=== PATIENT | male | born 1995 | race Two or more races ===

== ENCOUNTER 2025-02-05 16:33 | Emergency (ER) | payer OTHER, SELFPAY ==
[2025-02-05 16:40] VITALS: BP 111/75; PULSE 76; RESP 16; TEMP 36.7; O2SAT 100; BMI 24.7
--- NOTE | 2025-02-05 16:51 | XR_ITS ---
Examination: Venous duplex lower extremity sonogram, bilateral. Date and time of exam: February 05, 2025 1658 hrs. Indications: Bilateral lower leg swelling this week Technique: Multiple sonographic images of the deep venous system have been obtained. B-mode/2-D grayscale imaging of vascular structures and Doppler spectral analysis (waveforms) and color performed Both legs are examined. Findings: Deep venous systems do not demonstrate abnormal echogenicity. All visualized deep veins exhibit compressibility. All visualized deep veins exhibit augmentation. Impression: Negative for deep vein thrombosis
--- NOTE | 2025-02-05 16:54 | PD.EDEXREM ---
ED Extremity Problem RME/HPI General Chief complaint: Extremity Problem,Nontraumatic Stated complaint: MEDICAL CLEARANCE Time Seen by Provider: 02/05/25 16:41 Arrival date/time: 02/05/25 16:33 RME / HPI RME / HPI Narrative: 29 year old male with no stated medical history presents to the ED [facility]IB [facility] from skilled nursing for evaluation of bilateral lower extremity redness, swelling, and increased warmth beginning ~ 1-2 weeks ago. Patient denies any history of similar symptoms, injury, or trauma. Denies fevers, chills, chest pain, cough, shortness of breath. Per officers, patient has been incarcerated since 01/12/2025 and has not sought medical attention since onset of symptoms. No other complaints reported. Related Data Previous Rx's ?Medication ?Instructions ?Recorded ibuprofen 600 mg tablet 600 mg PO Q6H PRN pain #30 tabs 02/05/25 sulfamethoxazole 800 1 tab PO BID #20 tabs 02/05/25 mg-trimethoprim 160 mg tablet (Bactrim DS) Allergies Allergy/AdvReac Type Severity Reaction Status Date / Time No Known Drug Allergies Allergy Verified 02/05/25 17:48 Review of Systems Review of Systems Systems Reviewed: All systems reviewed, normal except as documented ED Exam Narrative Physical exam: GENERAL APPEARANCE: alert and oriented x 4, well-developed, well-nourished, no acute distress HEENT: Normocephalic, atraumatic; pupils equal, round, reactive to light; EOMI; mucous membranes pink, moist; oropharynx clear NECK: Supple LUNGS: CTABL; no wheezes, no rales, no rhonchi HEART: Regular rate, regular rhythm; normal S1, S2; no murmurs ABDOMEN: non distended; normal BS; soft, no tenderness, no guarding, no rebound; no masses, no organomegaly, no hernia BACK: no CVA tenderness EXTREMITIES: Bilateral lower extremity erythema, edema, and increased warmth; no edema NEUROLOGIC: awake; alert and oriented x4; cranial nerves II-XII grossly intact; no focal sensory or motor deficits SKIN: warm, dry, normal color; no rashes Course Quality Measures none Orders Category Date Time Status US venous doppler LE BI Stat Exams 02/05/25 16:51 Completed CBC Stat Lab 02/05/25 16:49 Completed CMP [Comprehensive Metabolic Panel] Stat Lab 02/05/25 16:49 Completed Lactic Acid [Lactate (Lactic Acid)] Stat Lab 02/05/25 16:49 Completed Procalcitonin Stat Lab 02/05/25 16:49 Completed Trimethoprim/Sulfa 160/800 Ds [Bactrim Ds] Med 02/05/25 17:48 Discontinued 1 tab PO X1 ONE Vital Signs Vital signs: Vital Signs Temperature 98.0 F 02/05/25 16:40 Pulse Rate 76 02/05/25 16:40 Respiratory Rate 16 02/05/25 16:40 Blood Pressure 111/75 02/05/25 16:40 Pulse Oximetry (%) 100 02/05/25 16:40 Oxygen Delivery Method Room Air 02/05/25 16:40 Extremity Problem MDM Narrative MDM Narrative:: Abiola Todd am scribing for and in the presence of Dr. Chavez. Patient remains clinically stable throughout the emergency department visit. We reviewed all the results, analysis, and treatment plans. Patient is amenable to discharge. Strict return precautions were outlined. Patient data External records reviewed:: None (No previous ED visits for review ) Clinical information provided by:: patient and law enforcement Social determinants that could affect healthcare access:: housing (currently incarcerated ) Patient has the following chronic illnesses:: None reported How is presenting disease/condition affected by chronic disease/condition?: no chronic disease Evaluation data The following diagnostics were reviewed and interpreted by me:: lab results and radiology exam(s) Lab and/or radiology exams considered but not ordered:: None Interpretation Summary: Ordering Physician: Keke Chavez MD Date of Service: 02/05/25 Procedure(s): US venous doppler LE Accession Number(s): [id number] cc: Kapil Ortiz MD; Keke Chavez MD~ Examination: Venous duplex lower extremity sonogram, bilateral. Date and time of exam: February 05, 2025 1658 hrs. Indications: Bilateral lower leg swelling this week Technique: Multiple sonographic images of the deep venous system have been obtained. B-mode/2-D grayscale imaging of vascular structures and Doppler spectral analysis (waveforms) and color performed Both legs are examined. Findings: Deep venous systems do not demonstrate abnormal echogenicity. All visualized deep veins exhibit compressibility. All visualized deep veins exhibit augmentation. Impression: Negative for deep vein thrombosis Dictated By: Kapil Ortiz MD Signed By: <Electronically signed by Kapil Ortiz MD in OV> 02/05/25 1722 Medications / Prescriptions Medications or Prescriptions considered but not ordered:: None Medication administrations:: Medication Administration History Discontinued Medications Trimethoprim/Sulfamethoxazole (Trimethoprim/Sulfa 160/800 Ds Tablet) 1 tab PO X1 ONE Stop: 02/05/25 17:49 Last Admin: 02/05/25 18:04 Dose: 1 tab Documented By: ED See above Consultations Consultation(s) initiated? (list below): No Diagnosis Extremity Problem Differential Diagnosis: gout, cellulitis, lower extremity edema and deep vein thrombosis of lower extremity Most likely diagnosis given after review of the tests above:: BLE cellulitis Admission Indicated Admission indicated?: not indicated Admission Request Was there a request for admission?: No Disposition Plan Disposition Plan: Discharge Discharge Attestation Discharge Attestation: The patient and all family members were given an opportunity to ask questions and understood the discharge instructions. Discharge instructions specifically effects, indications for sooner follow up or return to the emergency department, and the expected course of current diagnosis. Patient condition: Stable Discharge Plan Plan Patient Disposition: [facility]/Court/Law Prescriptions/Referrals Prescriptions/Med Rec: New sulfamethoxazole-trimethoprim [Bactrim DS] 800-160 mg tablet 1 tab PO BID Qty: 20 0RF ibuprofen 600 mg tablet 600 mg PO Q6H PRN (Reason: pain) Qty: 30 0RF Problem List Clinical Impression: Cellulitis, Lower extremity edema Patient/Caregiver Discharge Instructions Education Materials: ED Cellulitis Print Language: [place]
[2025-02-05 17:03] LABS: Lactate (Lactic Acid) 0.9 mMol/L (0.4-2.0)
[2025-02-05 17:12] LABS: Basophils # (Auto) 0.1 Thou/mm3 (0.0-0.2); Basophils % (Auto) 1 % (0-2.5); Eosinophils # (Auto) 0.1 Thou/mm3 (0.0-0.5); Eosinophils % (Auto) 1 % (0-10); Hematocrit 35.6 % (41.0-53.0); Hemoglobin 12.7 g/dL (13.5-16.0); Immature Granulocytes Auto 0.02 Thou/mm3 (0.00-0.00); Lymphocytes # (Auto) 1.8 Thou/mm3 (1.0-4.8); Lymphocytes % (Auto) 17 % (10-50); Mean Corpuscular HGB Conc 35.7 g/dl (31.0-37.0); Mean Corpuscular Hemoglobin 31.7 pg (25.0-35.0); Mean Corpuscular Volume 89 fL (80-100); Monocytes # (Auto) 0.8 Thou/mm3 (0.0-0.8); Monocytes % (Auto) 8 % (0-12); Neutrophils # (Auto) 7.7 Thou/mm3 (1.8-7.7); Neutrophils % (Auto) 74 % (37-80); Nucleated Red Blood Cell # 0.00 Thou/mm3 (0.00-0.00); Nucleated Red Blood Cell % 0 /100 WBC (0); Platelet Count 404 Thou/mm3 (140-440); RDW Standard Deviation 42.1 fL (35.1-43.9); Red Blood Count 4.01 Miln/mm3 (4.50-5.90); White Blood Count 10.4 Thou/mm3 (3.8-10.6)
[2025-02-05 17:34] LABS: Alanine Aminotransferase 15 U/L (10-49); Albumin, Serum 4.1 gm/dL (3.5-5.0); Albumin/Globulin Ratio 1.7 (1.2-2.2); Alkaline Phosphatase 62 U/L (46-116); Anion Gap 11 (7-16); Aspartate Amino Transferase 31 U/L (0-34); BUN/Creatinine Ratio 12 Ratio (12-20); Bilirubin,Total 0.5 mg/dL (0.3-1.2); Blood Urea Nitrogen 11 mg/dL (9-23); Calcium 9.5 mg/dL (8.3-10.6); Calcium (Corrected) 9.5 mg/dL (8.5-10.1); Carbon Dioxide 27.3 mMol/L (20.0-31.0); Chloride 102 mMol/L (98-107); Creatinine (Component) 0.9 mg/dL (0.6-1.3); Globulin 2.4 gm/dL (2.3-3.5); Glucose 94 mg/dL (74-106); Osmolality,Calculated 278 (275-295); Potassium 3.4 mMol/L (3.4-5.1); Procalcitonin < 0.04 ng/ml (0.0-0.49); Sodium 140 mMol/L (136-145); Total Protein 6.5 gm/dL (5.7-8.2); eGFR > 60 See Note
[2025-02-05] MEDS: TRIMETHOPRIM/SULFA 160/800 DS TABLET 1 TAB PO (18:04)
[2025-02-05 18:08] VITALS: BP 114/81; PULSE 92; RESP 16; TEMP 36.7; O2SAT 100
== END 2025-02-05 18:08 ==
LOC: SERX 18:02
PROVIDERS: Emergency Provider Emergency Medicine
DX: Z02.89 Encounter for other administrative examinations (principal); L03.116 Cellulitis of left lower limb; L03.115 Cellulitis of right lower limb
CPT/HCPCS: 36415; 80053; 83605; 84145; 85025; 93970; 99283; A9270

== ENCOUNTER 2025-02-06 12:58 | Emergency (ER) | payer OTHER, SELFPAY ==
[2025-02-06 13:07] VITALS: BP 173/102; PULSE 115; RESP 18; TEMP 37; O2SAT 99
[2025-02-06 13:08] VITALS: BMI 25.4
--- NOTE | 2025-02-06 13:13 | EKG_ITS ---
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
--- NOTE | 2025-02-06 13:15 | PD.EDADULT ---
ED General RME/HPI General Stated complaint: PENITENTIARY CLEARANCE Time Seen by Provider: 02/06/25 13:09 Arrival date/time: 02/06/25 12:58 RME / HPI RME / HPI narrative: 29-year-old male patient with history of schizophrenia, was sent to us by general for potassium of 2.5. Apparently patient was seen here also yesterday for bilateral lower extremity swelling, ultrasound of bilateral lower extremity was done yesterday and it was negative for DVT today laboratory workup showed potassium 2.5 currently patient is not having any symptoms except for chronic leg pain. Patient is also talking nonsense. He is calm and cooperative. Related Data Previous Rx's ?Medication ?Instructions ?Recorded ibuprofen 600 mg tablet 600 mg PO Q6H PRN pain #30 tabs 02/05/25 sulfamethoxazole 800 1 tab PO BID #20 tabs 02/05/25 mg-trimethoprim 160 mg tablet (Bactrim DS) Allergies Allergy/AdvReac Type Severity Reaction Status Date / Time No Known Drug Allergies Allergy Verified 02/05/25 17:48 Review of Systems Review of Systems Narrative Review of Systems: Review of system reviewed and within normal limits except mentioned in HPI ED Exam Narrative Physical exam: VITAL SIGNS: Reviewed. GENERAL APPEARANCE: Alert and interactive, follows commands, no acute distress, HEAD AND FACE: Non-traumatic. ENT: PERRL, pink conjunctivitis, eyelid no trauma, Mucous membrane moist. NECK: Supple, nontender, no nuchal rigidity. CHEST: No tenderness, no crepitus, no paradoxical movement, no retractions. LUNGS: Clear, well ventilated, symmetric, no rales, no wheezing, no ronchi, no stridor, good breath sounds bilaterally. HEART: Regular rate, regular rhythm, no murmur, no gallops. ABDOMEN: Soft, positive bowel sounds, nondistended, no guarding, nontender, no rebound, no masses, RECTAL: Deferred. GENITAL: Deferred. NEUROLOGICAL: Gross motor function intact sensory function intact, Appropriate for age. MUSCULOSKELETAL: low back nontender, full range of motion. EXTREMITIES: Bilateral lower extremity +1 swelling, nontender, full range of motion. SKIN: Color pink, dry, no rash, no lacerations, no abrasions, no contusions. LYMPHATICS: Deferred. Course Quality Measures none Orders Category Date Time Status EKG (ED ONLY) *Do not use* NOW Care 02/06/25 13:14 Active EKG (ED Only) Stat Exams 02/06/25 13:13 Draft CBC [CBC] Stat Lab 02/06/25 13:19 Completed CK [Creatine Kinase] Stat Lab 02/06/25 13:19 Completed CMP [Comprehensive Metabolic Panel] Stat Lab 02/06/25 13:19 Completed Potassium Chloride [K-Dur] Med 02/06/25 13:50 Discontinued 40 meq PO X1 ONE Vital Signs Vital signs: Vital Signs Temperature 98.6 F 02/06/25 13:07 Pulse Rate 115 H 02/06/25 13:07 Respiratory Rate 18 02/06/25 13:07 Blood Pressure 173/102 H 02/06/25 13:07 Pulse Oximetry (%) 99 02/06/25 13:07 Oxygen Delivery Method Room Air 02/06/25 13:07 Discharge Plan Plan Patient Disposition: HOME (Self Care) Discharge Disposition comment: stable Prescriptions/Referrals Prescriptions/Med Rec: No Action sulfamethoxazole-trimethoprim [Bactrim DS] 800-160 mg tablet 1 tab PO BID Qty: 20 0RF ibuprofen 600 mg tablet 600 mg PO Q6H PRN (Reason: pain) Qty: 30 0RF Referrals: Carlos A([facility])Patricia MD [Primary Care Provider] - In 1 week Problem List Clinical Impression: Acute hypokalemia Patient/Caregiver Discharge Instructions Discharge Activity: activity as tolerated Education Materials: ED Hypokalemia Additional Instructions: Thank you for the opportunity for serving you today. You are stable for discharged . You are advised to: Return to ED for worsening of symptoms Today's potassium was noted to be 3.3. Patient was given 40 mEq of potassium p.o. Continue taking the antibiotic that was prescribed yesterday. Print Language: [place] Stand Alone Forms: [facility] Award Info., Patient Portal Info Letter PA/INFORMATION ARCHITECT Supervising Physician CALDERON/NICOLAS Supervising Physician: MD Osmel MDM Narrative MDM hospital course (for use when minimal MDM required): 29-year-old male patient with history of schizophrenia, was sent to us by general for potassium of 2.5. Apparently patient was seen here also yesterday for bilateral lower extremity swelling, ultrasound of bilateral lower extremity was done yesterday and it was negative for DVT today laboratory workup showed potassium 2.5 currently patient is not having any symptoms except for chronic leg pain. Patient is also talking nonsense. He is calm and cooperative. EKG showed sinus rhythm, ventricular rate of 98 bpm, no ST segment elevation or depression noted. Patient potassium today was noted to be 3.3 patient received 40 mEq potassium. Patient was prescribed antibiotic yesterday was advised to continue taking antibiotic. Stable for [facility] Medication Administration(s) Medication Administration History Discontinued Medications Potassium Chloride (Potassium Chloride 20 Meq Tabcr) 40 meq PO X1 ONE Stop: 02/06/25 13:51 Last Admin: 02/06/25 14:19 Dose: 40 meq Documented By: TM Diagnosis Differential Diagnosis ED Complaint MDM: Hypokalemia, lower leg swelling, lower leg cellulitis, Diagnoses ruled out and/or further discussions: Hypokalemia mild
[2025-02-06 13:35] LABS: Basophils # (Auto) 0.0 Thou/mm3 (0.0-0.2); Basophils % (Auto) 0 % (0-2.5); Eosinophils # (Auto) 0.1 Thou/mm3 (0.0-0.5); Eosinophils % (Auto) 1 % (0-10); Hematocrit 35.6 % (41.0-53.0); Hemoglobin 12.5 g/dL (13.5-16.0); Immature Granulocytes Auto 0.02 Thou/mm3 (0.00-0.00); Lymphocytes # (Auto) 1.7 Thou/mm3 (1.0-4.8); Lymphocytes % (Auto) 17 % (10-50); Mean Corpuscular HGB Conc 35.1 g/dl (31.0-37.0); Mean Corpuscular Hemoglobin 31.1 pg (25.0-35.0); Mean Corpuscular Volume 89 fL (80-100); Monocytes # (Auto) 0.6 Thou/mm3 (0.0-0.8); Monocytes % (Auto) 6 % (0-12); Neutrophils # (Auto) 7.3 Thou/mm3 (1.8-7.7); Neutrophils % (Auto) 75 % (37-80); Nucleated Red Blood Cell # 0.00 Thou/mm3 (0.00-0.00); Nucleated Red Blood Cell % 0 /100 WBC (0); Platelet Count 432 Thou/mm3 (140-440); RDW Standard Deviation 42.5 fL (35.1-43.9); Red Blood Count 4.02 Miln/mm3 (4.50-5.90); White Blood Count 9.7 Thou/mm3 (3.8-10.6)
[2025-02-06 13:49] LABS: Alanine Aminotransferase 17 U/L (10-49); Albumin, Serum 4.0 gm/dL (3.5-5.0); Albumin/Globulin Ratio 1.8 (1.2-2.2); Alkaline Phosphatase 68 U/L (46-116); Anion Gap 10 (7-16); Aspartate Amino Transferase 32 U/L (0-34); BUN/Creatinine Ratio 12 Ratio (12-20); Bilirubin,Total 0.3 mg/dL (0.3-1.2); Blood Urea Nitrogen 12 mg/dL (9-23); Calcium 9.0 mg/dL (8.3-10.6); Calcium (Corrected) 9.0 mg/dL (8.5-10.1); Carbon Dioxide 26.7 mMol/L (20.0-31.0); Chloride 103 mMol/L (98-107); Creatine Kinase 476 U/L (34-171); Creatinine (Component) 1.0 mg/dL (0.6-1.3); Estimated Creatinine Clearance 103.6 mL/min (>60); Globulin 2.2 gm/dL (2.3-3.5); Glucose 114 mg/dL (74-106); Osmolality,Calculated 280 (275-295); Potassium 3.3 mMol/L (3.4-5.1); Sodium 140 mMol/L (136-145); Total Protein 6.2 gm/dL (5.7-8.2); eGFR > 60 See Note
[2025-02-06 14:06] VITALS: BP 112/93; PULSE 112; RESP 18; TEMP 36.6; O2SAT 98
== END 2025-02-06 16:43 | disposition home or self-care (01) ==
PROVIDERS: Nurse Practitioner Family; Emergency Provider Family Medicine; PCP Internal Medicine
DX: E87.6 Hypokalemia (principal); I49.8 Other specified cardiac arrhythmias
CPT/HCPCS: 36415; 80053; 82550; 85025; 93005; 99283; A9270